=== PATIENT | male | born 2000 | race Caucasian/White ===

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

== ENCOUNTER 2022-08-25 23:43 | Emergency (ER) | payer BC, SELFPAY ==
[2022-08-25 23:44] VITALS: BP 125/81; PULSE 94; RESP 16; TEMP 37.3; O2SAT 98; BMI 25.2
--- NOTE | 2022-08-25 23:54 | EX.ED.DYSGE1 ---
HPI History of Present Illness Chief Complaint: Ear Problem Detail of Chief Complaint: Recent head injury Informant: patient and friend Onset/Context/Timing Onset: Days Context: Gradual Onset Current Severity: Mild Maximum Severity: Mild Narrative Narrative: 22-year-old male no seen past medical history. About a week ago he was in the workout room at the [employer] and a piece of the bench hit him in the head. No loss conscious. No vomiting. He is on no blood thinners. Today his significant other thought she saw something come out of his ear she was not sure if it was wax or blood in 1 to have him evaluated. He has had some mild headaches. Prior similar symptoms: No Recent Illness/Hospitalization: No PFSH PFSH Medical History no medical history no medical history Home Medications escitalopram oxalate 20 mg tablet 20 mg PO DAILY 12/27/21 [History Last Taken Unknown] melatonin 5 mg capsule 5 mg PO QHS 12/27/21 [History Last Taken Unknown] Allergy/AdvReac Type Severity Reaction Status Date / Time No Known Allergies Allergy Verified 08/25/22 23:44 Surgical History History of tonsillectomy Social History Smoking Status: Never smoker ROS ROS ED ROS Narrative Denies recent illness. Review of Systems ROS Unobtainable: Denies due to encephalopathy Constitutional Constitutional ED: Denies chills or fever(s) Eyes Eyes: Denies blurry vision ENT ENT ED: Denies ear pain Cardiovascular Cardiovascular: Denies chest pain Respiratory/Chest Respiratory/Chest: Denies cough Gastrointestinal Gastrointestinal: Denies abdominal pain Genitourinary Genitourinary ED: Denies dysuria Musculoskeletal Musculoskeletal: Denies arthralgias Integumentary Denies abscess Neurologic Neurologic: Reports headache(s) Psychiatric Psychiatric: Denies anxiety Endocrine Endocrinology: Denies cold intolerance Hematologic/Lymphatic Hematologic/Lymphatic: Reports none Allergic/Immunologic Allergic/Immunologic ED: Denies mouth swelling or tongue swelling EXAM Physical Exam Narrative Exam Narrative: Well-appearing 22-year-old male. Vital signs stable afebrile. H EENT exam unremarkable. Pupils round reactive light. Posterior pharynx normal. TMs normal bilaterally. No perforation. No blood. No hemotympanum. Posterior pharynx normal. Neck nontender full range of motion. No lymphadenopathy. Lungs clear to auscultation bilaterally. Heart regular rhythm no murmur rate about 90. Chest wall nontender. Abdomen soft nontender. Back nontender. Moving all 4 extremities. Neurovascular intact. 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 Dorsi plantarflexion. Neurologic exam normal. GCS of 15. Fingertip to nose and [id number] within normal limits. He ambulates without any difficulty. Negative Romberg. Const Vital Signs: 08/25/22 23:44 Temperature 99.2 F H Temperature Source Temporal Pulse Rate 94 Respiratory Rate 16 Blood Pressure 125/81 H Blood Pressure Mean 95 Pulse Ox 98 Oxygen Delivery Method Room Air Positive well nourished and well developed; Negative for obese, cachectic, contractures or unkempt General Appearance ED: well developed and NAD; Negative for unkempt, cachectic, contractures, cyanotic or diaphoretic Nutritional Appearance: Negative for cachectic or obese HEENT Reports moist mucous membranes; Denies dry mucous membranes Negative for trauma or tenderness Mouth ED: No dry mucous membranes Mouth: No dry mucous membranes Eyes PERRL and EOMs intact bilaterally General Eye ED: Negative for pale conjunctiva or scleral icterus Neck no lymphadenopathy, supple and no JVD General: Negative for tenderness Lymph Lymphatic: Negative for other Chest Wall inspection of chest normal and palpation of chest normal Chest: Negative for other Resp normal respiratory effort and clear to auscultation bilaterally Effort and Inspection: Negative for retractions Auscultation: Negative for rales, rhonchi or wheezes Cardio regular rate, regular rhythm, S1 normal heart sound, S2 normal heart sound and no murmurs Palpation: Negative for palpable S3 Rate: Negative for bradycardia Rhythm: Negative for abnormal rhythm GI normal to inspection, nondistended, normoactive bowel sounds, non-tender, non-distended and no masses Inspection: Negative for abdominal distention Auscultation: normoactive bowel sounds Palpation: soft; Negative for tender Back/Spine no CVA tenderness General Back: Negative for CVA tenderness Cervical Spine: Negative for cervical spine tenderness Thoracic Spine / Upper Back: Negative for thoracic spinal tenderness Lumbar Spine / Lower Back: Negative for lumbar spinal tenderness Extremity normal to inspection General Extremety ED: Negative for edema or tenderness General Extremity: Negative for edema Neuro oriented x3, CN's II-XII intact bilaterally and no sensory deficits noted Sensorium / Orientation: alert; Negative for orientation impaired, lethargic or stuporous Motor Exam: strength 5/5 throughout Psych mental status grossly normal Appearance: Negative for unkempt Attitude: No agitated Mood & Affect: Negative for depressed, anxious or tearful Skin no rashes or lesions noted and no wounds Lesions: No lesion noted Rashes: No rashes noted Trauma: Negative for abrasion MDM MDM MDM Narrative Medical decision making narrative: 22-year-old male recent mild head injury. Needs no imaging. Normal exam. Discussed with both he and his significant other. He will be discharged home. Discharge Plan Triage Chief Complaint: Ear Problem ED Provider: Dar Alegria Dx/Rx/DC Orders Clinical Impression: Head injury Instructions: ED Head Injury (Adult) Prescriptions: No Action escitalopram oxalate 20 mg Tablet 20 mg PO DAILY melatonin 5 mg Capsule 5 mg PO QHS Primary Care Provider: Care Physician,No Primary Referrals: Orion Fonseca MD [[facility] - [facility]] - As Needed Care Physician,No Primary [Primary Care Provider] - Activity Restrictions/Additional Instructions: Mild head injury. Should progressively improve. May use Tylenol and/or Motrin for headaches. Plenty of fluids and rest. Should progressively get better. Disposition Disposition: Home, Self Care
== END 2022-08-26 00:04 | disposition home or self-care (01) ==
LOC: ED 08-26 00:03
PROVIDERS: Emergency Provider Emergency Medicine; Visit Provider Emergency Medicine
DX: S09.90XA Unspecified injury of head, initial encounter (principal); W22.8XXA Striking against or struck by other objects, initial encounter
CPT/HCPCS: 99282

== ENCOUNTER 2022-09-25 20:11 | Emergency (ER) | payer BC, SELFPAY ==
[2022-09-25 20:12] VITALS: BP 124/84; PULSE 99; RESP 15; TEMP 37.3; O2SAT 92; BMI 24.7
--- NOTE | 2022-09-25 20:17 | EKG12_ITS ---
Test Reason : DYSRHYTHMIA Blood Pressure : / mmHG Vent. Rate : 086 BPM Atrial Rate : 086 BPM P-R Int : 140 ms QRS Dur : 086 ms QT Int : 362 ms P-R-T Axes : 050 085 043 degrees QTc Int : 433 ms Normal sinus rhythm with sinus arrhythmia Normal ECG Confirmed by CATHIE RICKS, FERNANDO ([id number]), commissioning editor LAURIE MARTIN ([id number]) on 09/27/2022 9:45:03 AM Referred By: RUT Confirmed By:FERNANDO BRAND MD
[2022-09-25 20:44] LABS: Absolute Lymphocyte Count 2.76 X10^3/uL (0.83-4.51); Absolute Neutrophil Count 3.1 X10^3/uL (2.0-7.7); Basophil# 0.06 X10^3/uL; Basophil% 0.9 % (0-1); Eosinophil# 0.19 X10^3/uL; Eosinophils% 2.8 % (0-5); Hemoglobin 14.4 g/dL (13.0-16.5); Lymphocyte # 2.76 X10^3/ul (0.83-4.51); Lymphocyte % 40.8 % (19-41); Mean Corp Hgb Conc 33.5 g/dL (32-36); Mean Corpuscular Hgb 29.4 pg (27.0-32.0); Mean Corpuscular Volume 87.8 fL (80-94); Mean Platelet Vol. 10.2 fl (6.2-12.0); Monocyte# 0.64 X10^3/uL; Monocyte% 9.5 % (0-10); NRBC Flagged by Analyzer 0 % (0-5); Neutrophil # 3.08 X10^3/uL (2.7-7.7); Neutrophil % 45.6 % (47-70); Platelet Count 280 K/mm3 (150-450); RBC Distribution Width CV 12.1 % (11.6-14.6); RBC Distribution Width SD 39.1 fl (35.1-43.9); White Blood Count 6.8 K/mm3 (4.4-11.0)
[2022-09-25 21:01] LABS: Anion Gap 4 (5-15); BUN 11 mg/dL (7-18); BUN/Creat Ratio 13.7 RATIO (10-20); Calcium,Total 9.3 mg/dL (8.5-10.1); Chloride 107 mmol/L (98-107); EST Glomerular Filtration Rate 130 mL/min (>60); Est Glom Filt Rate - Afr Amer 157 mL/min (>60); Estimated Creatinine Clearance 176.04 ml/min; Glucose 101 mg/dL (74-106); Potassium 3.8 mmol/L (3.5-5.1); Sodium Level 139 mmol/L (136-145); Troponin-I HS (w/2H Reflex) < 3 pg/mL (3.0-78.0)
[2022-09-25 22:16] VITALS: BP 141/84; PULSE 83; RESP 16; O2SAT 100
[2022-09-25 22:40] LABS: Reflex Troponin-HS? (from REC) Y
--- NOTE | 2022-09-25 22:47 | EDS_ITS ---
HPI History of Present Illness Chief Complaint: Palpitations Informant: patient Narrative Narrative: Patient is a 22-year-old male with history of anxiety presenting with palpitations and anxiety. He has been having heart palpitations as well as chest discomfort and back discomfort for the past 3 days. It is worse when he is in a stress/anxious situation such as working on schoolwork. He notes finals are coming up. Is better when he gets up and walks around. Never anything like this before but admits that he had a concussion a month ago and his symptoms been worse since. He denies any swelling of his feet or ankles. He is not on any hormonal therapy. Denies any history of DVT or PE. States to be going home to [place] next week. Does not have a counselor or psychiatrist here. No other complaints at this time. PFSH PFS Medical History no medical history Home Medications escitalopram oxalate 20 mg tablet 20 mg PO DAILY 12/27/21 [History Last Taken Unknown] melatonin 5 mg capsule 5 mg PO QHS 12/27/21 [History Last Taken Unknown] hydroxyzine pamoate 25 mg capsule (Vistaril) 25 mg PO Q8H PRN anxiety #20 caps 09/25/22 [Rx Last Taken Unknown] Allergy/AdvReac Type Severity Reaction Status Date / Time No Known Allergies Allergy Verified 09/25/22 20:17 Surgical History History of tonsillectomy Social History Smoking Status: Never smoker ROS ROS ED Constitutional Constitutional ED: Denies chills or fever(s) Eyes Eyes: Denies change in vision ENT ENT ED: Denies rhinorrhea or sore throat Cardiovascular Cardiovascular: Reports chest pain and palpitations Respiratory/Chest Respiratory/Chest: Denies cough or dyspnea Gastrointestinal Gastrointestinal: Denies abdominal pain, nausea or vomiting Musculoskeletal Musculoskeletal: Denies arthralgias or myalgias Integumentary Denies rash Neurologic Neurologic: Denies headache(s) or weakness Psychiatric Psychiatric: Reports anxiety; Denies depression, suicidal ideation or suicidal thoughts EXAM Physical Exam Const Vital Signs: 09/25/22 20:12 09/25/22 22:16 09/25/22 22:16 Temperature 99.1 F Temperature Source Temporal Pulse Rate 99 83 Respiratory Rate 15 16 Respiratory Effort Normal Non-Labored Blood Pressure 124/84 H 141/84 H Blood Pressure Mean 97 103 Pulse Ox 92 100 Oxygen Delivery Method Room Air Room Air Positive well nourished and well developed General Appearance ED: well developed and NAD HEENT Reports TM's clear and moist mucous membranes Tympanic Membrane ED: Yes TM's clear Eyes PERRL and EOMs intact bilaterally Chest Wall inspection of chest normal and palpation of chest normal Resp normal respiratory effort and clear to auscultation bilaterally Cardio regular rate, regular rhythm and no murmurs GI normal to inspection, nondistended, normoactive bowel sounds and non-tender Back/Spine no CVA tenderness Extremity normal to inspection General Extremety ED: Negative for edema or tenderness General Extremity: Negative for edema Neuro oriented x3 Sensorium / Orientation: alert Motor Exam: Negative for general weakness Psych mental status grossly normal Mood & Affect: anxious; Negative for depressed or tearful Skin no rashes or lesions noted MDM MDM MDM Narrative Medical decision making narrative: Patient's evaluated for palpitations and chest discomfort. Seems related to anxiety and stress associate with school work. Patient is PE RC negative and I do not think a D-dimer is indicated. Troponin is less than 3 and his symptoms are going on intermittently for 3 days. EKG does not show any ischemic changes. I do not think further cardiac monitoring is indicated. He has no cough or respiratory symptoms. Do not think this is infectious. CBC and BMP normal. TSH is normal. Patient will be discharged with a prescription for hydroxyzine. He is given a dose in the ER. Is offered information for the counseling center but patient declined stating he will do research on his own and will probably follow-up with his own PCP when he gets back home. Patient counseled return precautions. Discharged home in stable condition. Transported back home by campus security. Lab Data Labs: Laboratory Results - last 24 hr 09/25/22 09/25/22 09/25/22 20:35 20:35 20:35 WBC 6.8 RBC 4.90 Hgb 14.4 Hct 43.0 MCV 87.8 MCH 29.4 MCHC 33.5 RDW Std Deviation 39.1 RDW Coeff of Madelaine 12.1 Plt Count 280 MPV 10.2 Immature Gran % (Auto) 0.400 Neut % (Auto) 45.6 L Lymph % (Auto) 40.8 Hubbard % (Auto) 9.5 Eos % (Auto) 2.8 Baso % (Auto) 0.9 Absolute Neuts (auto) 3.1 Absolute Lymphs (auto) 2.76 Nucleated RBC % 0 Sodium 139 Potassium 3.8 Chloride 107 Carbon Dioxide 28.0 Anion Gap 4 L BUN 11 Creatinine 0.80 Estim Creat Clear Calc 176.04 Est GFR (MDRD) Af Amer 157 Est GFR (MDRD) Non-Af 130 BUN/Creatinine Ratio 13.7 Glucose 101 Calcium 9.3 Troponin I High Sens < 3 L TSH 1.10 Rhythm Strip Rhythm Strip: Sinus Rhythm Rate: 86 Ectopy: None EKG Initial EKG: Attestation: I personally reviewed and interpreted this EKG as follows: Interpretation: Sinus Rhythm Comments: Normal sinus rhythm at a rate of 86 bpm Normal axis Normal intervals Normal ST segment Discharge Plan Triage Chief Complaint: Palpitations ED Provider: Edith Christopher Dx/Rx/DC Orders Clinical Impression: Palpitations, Anxiety, Chest pain Instructions: ED Anxiety Reaction, ED Chest Pain, Noncardiac, ED Palpitations Prescriptions: New hydroxyzine pamoate [Vistaril] 25 mg capsule 25 mg PO Q8H PRN (Reason: anxiety) Qty: 20 0RF No Action escitalopram oxalate 20 mg Tablet 20 mg PO DAILY melatonin 5 mg Capsule 5 mg PO QHS Primary Care Provider: Care Physician,No Primary Referrals: Counseling,Center [Group of Physicians] - As Needed Care Physician,No Primary [Primary Care Provider] - Activity Restrictions/Additional Instructions: Please follow-up with your primary care doctor when you return home. Your work- up here was normal including your red blood cells, white blood cells, electrolytes, troponin and thyroid-stimulating hormone. Your EKG was normal as well. Disposition Disposition: Home, Self Care
[2022-09-25] MEDS: hydrOXYzine PAM 25 MG Capsule PO (23:07)
== END 2022-09-25 23:09 | disposition home or self-care (01) ==
PROVIDERS: Emergency Provider Emergency Medicine; Visit Provider Emergency Medicine
DX: R07.9 Chest pain, unspecified (principal); F41.9 Anxiety disorder, unspecified; R00.2 Palpitations
CPT/HCPCS: 80048; 84443; 84484; 85025; 93005; 99284; A4216